=== PATIENT | female | born 1960 | race Caucasian/White ===

== ENCOUNTER → 2016-10-20 | Outpatient (CLI) | payer OTHER ==
--- NOTE | 2016-10-20 14:32 | RAD ---
Indication calcifications right breast. Note is made of recent, outside, mammography demonstrating indeterminate calcifications in the right breast. Targeted ultrasound to the area of concern in the right breast was performed. The calcifications on mammography are not well represented on ultrasound. (Under ordinary circumstances calcifications are not, usually, optimally demonstrated on ultrasound). Stereotactic biopsy of the calcifications is recommended IMPRESSION: Nonvisualization of calcifications in the right breast with ultrasound
== END | disposition home or self-care (01) ==
LOC: US 13:53
PROVIDERS: ATTEND Surgery
DX: R92.8 Other abnormal and inconclusive findings on diagnostic imaging of breast (principal)
CPT/HCPCS: 76641

== ENCOUNTER → 2016-10-21 | Outpatient (CLI) | payer OTHER ==
[~2016-10-21] VITALS: Ht 175.3 cm; Wt 77.1 kg
[~2016-10-21] MED LIST: LIDOCAINE 1% / SOD BICARB 8.4% 20 ML VIAL. IJ ONE; LIDOCAINE 2%/EPI 1:100,000 20 ML VIAL. IJ ONE
[2016-10-21 10:09] VITALS: BP 128/75
== END | disposition home or self-care (01) ==
LOC: MAMMO 09:26
PROVIDERS: ATTEND Surgery
DX: R92.8 Other abnormal and inconclusive findings on diagnostic imaging of breast (principal)
CPT/HCPCS: 19085; 77022; C1713; G0206; 77065

== ENCOUNTER → 2016-12-08 | Outpatient (CLI) | payer OTHER ==
[2016-10-21 10:09] VITALS: BP 128/75
--- NOTE | 2016-12-08 15:01 | KCIC ---
Indication: Low back pain. Time of exam 2:44 PM 3 views of the lumbar spine were obtained. Curvature and alignment is normal. The vertebral body heights are well-maintained. No acute compression fracture is seen. There is degenerative disc disease at the L5-S1 level with disc space narrowing and marginal spurring. IMPRESSION: L5-S1 degenerative disc disease. No acute bony abnormality is detected. Electronically signed by: Simon Cardozo MD (12/08/2016 2:57 PM) [id number]
== END | disposition home or self-care (01) ==
LOC: KCIC 14:32
PROVIDERS: ATTEND Nurse Practitioner Family
DX: M51.37 Other intervertebral disc degeneration, lumbosacral region (principal); G89.29 Other chronic pain
CPT/HCPCS: 72100

== ENCOUNTER → 2016-12-08 | Outpatient (CLI) | payer OTHER ==
[2016-10-21 10:09] VITALS: BP 128/75
--- NOTE | 2016-12-08 15:02 | KCIC ---
Indication: Right shoulder pain and limited range of motion. Time of exam 2:46 PM 3 views of the right shoulder demonstrate normal glenohumeral and acromioclavicular alignment. The acromiohumeral space is normal. No fracture or dislocation is seen. IMPRESSION: No acute bony abnormality is detected. Electronically signed by: Simon Cardozo MD (12/08/2016 2:58 PM) [id number]
== END | disposition home or self-care (01) ==
LOC: KCIC 14:37
PROVIDERS: ATTEND Family Medicine
DX: M25.561 Pain in right knee (principal)
CPT/HCPCS: 73030

== ENCOUNTER → 2016-12-18 | Outpatient (CLI) | payer OTHER ==
[2016-10-21 10:09] VITALS: BP 128/75
--- NOTE | 2016-12-18 09:30 | KCIC ---
3 view cervical spine HISTORY: Pain of the right neck into the shoulder. No injury or trauma. C1-T1 are visualized on the lateral view. No acute fracture or bone destruction. Disc spaces appear maintained. Alignment intact. Prevertebral soft tissues unremarkable. IMPRESSION: No acute fracture or subluxation. Electronically signed by: Oneil Jordan MD (12/18/2016 9:27 AM) [id number]
== END | disposition home or self-care (01) ==
LOC: KCIC 08:21
PROVIDERS: ATTEND Family Medicine
DX: M54.2 Cervicalgia (principal)
CPT/HCPCS: 72040

== ENCOUNTER → 2017-01-06 | Outpatient (CLI) | payer OTHER ==
[2016-10-21 10:09] VITALS: BP 128/75
--- NOTE | 2017-01-06 16:00 | KCIC ---
PQRS Compliance Statement: One or more of the following individualized dose reduction techniques were utilized for this examination: 1. Automated exposure control 2. Adjustment of the mA and/or kV according to patient size 3. Use of iterative reconstruction technique Coronary calcium score CT chest without contrast History: 56 year old female with history of hypertension, smoking, diabetes, and family history of CAD. Technique: With retrospective electrocardiogram gating 2.5 mm thick axial reconstructed noncontrast images of the chest at the level of the coronary arteries was performed. Images were post processed on a [employer] workstation and calcium score calculated using the modified Agatston Janowitz protocol. Findings: Total coronary calcium score is 0. This places the patient in the 0th percentile rank which means that 100% of females between the ages of 56-60 have a higher calcium score than this patient. This is a no identifiable plaque burden and very low cardiovascular disease risk. This is based on the calcium score of 0 of the left main coronary artery, 0 of the left anterior descending artery, score of 0 of the left circumflex artery and score of 0 of the right coronary artery. Noncoronary findings demonstrate normal cardiac size. No pericardial effusion. 10 mm vague hypodensity in segment 7/8 of the liver, image 52. There is minimal subpleural scarring or atelectasis in the bilateral lower lobes posteriorly. 2 small sclerotic foci are seen in vertebral body, what may be the T10 or T11 vertebral body, image 40. Sclerotic density is seen in the more superior vertebral body on image 10. IMPRESSION: 1. Patient's total calcium score is 0. 2. There is a small vague hypodensity in the right hepatic lobe. Attempt could be made to further evaluate this finding with abdominal ultrasound. 3. 3 small sclerotic foci are seen in vertebral bodies. Differential includes osteoblastic metastases and bone islands. Consider further evaluation with bone scan or follow-up CT in 3 months. Electronically signed by: Raul Zarate MD (01/06/2017 3:57 PM) [id number]
== END | disposition home or self-care (01) ==
LOC: KCIC CT 14:19
PROVIDERS: ATTEND Family Medicine
DX: Z13.6 Encounter for screening for cardiovascular disorders (principal); I10 Essential (primary) hypertension; E11.9 Type 2 diabetes mellitus without complications; I25.10 Atherosclerotic heart disease of native coronary artery without angina pectoris; Z82.49 Family history of ischemic heart disease and other diseases of the circulatory system; Z87.891 Personal history of nicotine dependence
CPT/HCPCS: 75571

== ENCOUNTER → 2017-02-04 | Outpatient (CLI) | payer OTHER ==
[2016-10-21 10:09] VITALS: BP 128/75
--- NOTE | 2017-02-04 11:06 | KCIC ---
MRI Thoracic Spine without contrast History: Abnormal CT, right shoulder and scapula pain, middle back pain for 3 to 4 months Technique: Multiplanar, multi sequential noncontrast MR imaging was performed of the thoracic spine. Contrast: None Comparison: None other than calcium score CT exam January 06, 2017 Findings: Thoracic vertebral body stature and AP alignment are maintained. Thoracic cord caliber is within limits without focal signal abnormality. There is a focus of decreased signal on all sequences of the T11 vertebral body compatible with focus of nonspecific sclerosis. There is a small nonedematous inferior T7 Schmorl's node. There is a tiny focus of marrow signal change of the dorsal superior T7 vertebral body near endplate which is hyperintense on the T2 and STIR sequences, relatively isointense on the T1 sequence. There is no significant thoracic spinal stenosis or neural foramina compromise. There is no significant focal posterior disc abnormality of the thoracic spine. There is a 0.7 cm T2 hyperintense lesion of the visualized right lobe of the liver, also other larger focus 1.2 cm which is nearly isointense to liver parenchyma. There is a another larger T2 hyperintense lesion of the right lobe liver inferiorly up to 2.7 cm. Impression: 1. There is focus of nonspecific likely sclerosis of the T11 vertebral body. Tiny focus of marrow signal abnormality of the dorsal superior T7 vertebral body near endplate is nonspecific, could be due to reactive endplate edema given location, otherwise too small to accurately characterize. 2. There are T2 hyperintense liver lesions, difficult to confirm as being cysts as at least one more similar to liver parenchyma on T1 sequence. Electronically signed by: Fahad Seymour MD (02/04/2017 11:03 AM) [id number]
--- NOTE | 2017-02-04 11:24 | KCIC ---
Limited abdominal ultrasound History:Abnormal liver CT. COMPARISON: None available Findings: Aorta: No evidence of aneurysm. Inferior vena cava: Patent Pancreas: Unremarkable. Liver: Measures 17.6 cm longitudinal, upper limits normal. Coarse echogenicity suggesting some fatty infiltration. Anechoic lesion with posterior acoustic enhancement in the right lobe, compatible with a 2.5 cm cyst. Gallbladder: No evidence of cholelithiasis, gallbladder wall thickening or pericholecystic fluid. Bile ducts: Dilatation of the common bile duct measures 10 mm Right kidney: 10.3 cm longitudinal with mild renal pelvic dilatation. No shadowing calculus. Impression: 1. Right lobe liver cyst measuring 2.5 cm. 2. Liver demonstrates slight coarsening echogenicity pattern compatible with mild fatty alteration. 3. Mild common bile duct dilatation, 10 mm. 4. Mild prominence right renal pelvis could indicate mild hydronephrosis. Electronically signed by: Oneil Jordan MD (02/04/2017 11:21 AM) [id number]
== END | disposition home or self-care (01) ==
LOC: KCIC US 08:48
PROVIDERS: ATTEND Family Medicine
DX: K76.89 Other specified diseases of liver (principal); N13.30 Unspecified hydronephrosis; R79.89 Other specified abnormal findings of blood chemistry
CPT/HCPCS: 72146; 76705